=== PATIENT | female | born 1965 | race Two or more races ===

== ENCOUNTER → 2017-11-25 | Outpatient (CLI) | payer OTHER ==
[2017-11-26 13:09] LABS: RUBEOLA (MEASLES) IGG >300.0 AU/mL (Immune >29.9)
[2017-11-27 05:11] LABS: RUBELLA IGM ANTIBODY 30.2 AU/mL (0.0-19.9)
== END | disposition home or self-care (01) ==
LOC: EMPHLTH 09:05
PROVIDERS: ATTEND Internal Medicine
DX: Z02.1 Encounter for pre-employment examination (principal)
CPT/HCPCS: 86706; 86735; 86762; 86765; 86787